=== PATIENT | female | born 2000 | race American Indian/Alaskan Native ===

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

== ENCOUNTER 2020-08-14 16:49 | Emergency (ER) | payer SELFPAY ==
[2020-08-14 17:10] VITALS: BP 131/64
--- NOTE | 2020-08-14 17:13 | Emergency Department Report ---
ED Dysuria HPI - HPI Stated Complaint: CRAMPING/LATE PERIOD Time Seen by Provider: 08/14/20 17:10 Duration: 2 weeks Symptoms: Dysuria: Yes, Frequency: No, Suprapubic Pain: Yes, Flank Pain: No, Fever: No, Hematuria: No, Abdominal Pain: No, Previous UTI's: No Other History: This is a 20-year-old G0, P0 who presents to the ED complaining of mild suprapubic cramping x2 weeks. Patient states that she had a last menstrual period June 23, 2020. Patient states she took a test at home that was negative. Patient states she is unsure why she is having cramps on the lower pelvic region. She denies fever/chills/nausea vomiting/chest pain/shortness of breath or any other problems. ED Review of Systems ROS: Stated complaint: CRAMPING/LATE PERIOD Other details as noted in HPI Comment: All other systems reviewed and negative ED Past Medical Hx - Past Medical History Previous Medical History?: No Hx Psychiatric Treatment: Yes (IP at [place], [place]) - Surgical History Past Surgical History?: No - Social History Smoking Status: Never Smoker Substance Use Type: None - Medications Home Medications: Home Medications Medication Instructions Recorded Confirmed Last Taken Type Vit-Fe Fumar-FA [ 1 tab PO QDAY #60 tablet 08/14/20 Unknown Rx Vitamin] Dysuria Exam - Exam General: Vital signs noted. No distress. Alert and acting appropriately. Exam: Yes Moist Mucous Membranes, No CVA Tenderness, No Abdominal Tenderness, No Rigidity or Guarding Exam: Nontender abdomen in all quadrants ED Medical Decision Making - Radiology Data Radiology results: report reviewed, image reviewed ULTRASOUND OBSTETRIC INDICATION: 7 weeks with pelvic pain. TECHNIQUE: Transvaginal. COMPARISON: None available. FINDINGS: GESTATIONAL SAC: Well-defined oval shape and intrauterine in location. YOLK SAC: No significant abnormality. EMBRYO/FETUS: No significant abnormality. - [place]-Rump Length = 0.2 cm = 5 weeks, 5 day(s). - Heart Rate = 98 beats per minute. ADNEXA: No significant abnormality. FREE FLUID: None. ADDITIONAL FINDINGS: None. IMPRESSION: 1. Single, living intrauterine with estimated sonographic age of 5 weeks, 5 day(s). No acute abnormality. Signer Name: Johnathon Lamar MD Signed: 08/14/2020 8:19 PM Workstation Name: [id number] Transcribed By: [place] Dictated By: Johnathon Lamar MD Electronically Authenticated By: Johnathon Lamar MD Signed Date/Time: 08/14/202018 - Medical Decision Making This 20-year-old female presents with test positive. Ultrasound confirmed single intrauterine at 5 weeks 5 days with heart rate 98 bpm Discussed all findings with the patient. I discussed with patient need to follow-up with [facility] to receive care. vitamins given to patient along with referrals to last cycle [facility]. All answer questions answered. Patient is in no acute or respiratory distress. Critical care attestation.: If time is entered above; I have spent that time in minutes in the direct care of this critically ill patient, excluding procedure time. ED Disposition Clinical Impression: test performed, confirmed, Normal IUP (intrauterine pregnan cy) on ultrasound Disposition: DC- TO HOME OR SELFCARE Is pt being admited?: No Does the pt Need Aspirin: No Condition: Stable Instructions: Abdominal Pain (ED), Care, First Trimester of Additional Instructions: Make sure to follow up with the [facility] OPER[facility] as discussed. Take all your medications as you've been prescribed. If you have any worsening symptoms or develop new symptoms please return to ED immediately. Prescriptions: Vit-Fe Fumar-FA [ Vitamin] 1 tab PO QDAY #60 tablet Referrals: PRIMARY CAREMD [Primary Care Provider] - 3-5 Days [facility] [Provider Group] - 3-5 Days [facility] [Provider Group] - 3-5 Days Forms: Work/School Release Form(ED) Time of Disposition: 20:43
[2020-08-14 18:26] LABS: Bilirubin,Urine NEG (Negative); Blood,Urine NEG (Negative); Color,Urine Yellow (Yellow); Mucus,Urine 3+ /HPF; Urobilinogen,Urine < 2.0 mg/dL (<2.0)
[2020-08-14 18:27] LABS: HCG Qualitative,Urine Positive (Negative)
--- NOTE | 2020-08-14 20:23 | Ultrasound Report ---
ULTRASOUND OBSTETRIC INDICATION: 7 weeks with pelvic pain. TECHNIQUE: Transvaginal. COMPARISON: None available. FINDINGS: GESTATIONAL SAC: Well-defined oval shape and intrauterine in location. YOLK SAC: No significant abnormality. EMBRYO/FETUS: No significant abnormality. - [place]-Rump Length = 0.2 cm = 5 weeks, 5 day(s). - Heart Rate = 98 beats per minute. ADNEXA: No significant abnormality. FREE FLUID: None. ADDITIONAL FINDINGS: None. IMPRESSION: 1. Single, living intrauterine with estimated sonographic age of 5 weeks, 5 day(s). No acut e abnormality. Signer Name: Johnathon Lamar MD Signed: 08/14/2020 8:19 PM Workstation Name: [id number]
--- NOTE | 2020-08-14 20:23 | Ultrasound Report ---
ULTRASOUND OBSTETRIC INDICATION: 7 weeks with pelvic pain. TECHNIQUE: Transvaginal. COMPARISON: None available. FINDINGS: GESTATIONAL SAC: Well-defined oval shape and intrauterine in location. YOLK SAC: No significant abnormality. EMBRYO/FETUS: No significant abnormality. - [place]-Rump Length = 0.2 cm = 5 weeks, 5 day(s). - Heart Rate = 98 beats per minute. ADNEXA: No significant abnormality. FREE FLUID: None. ADDITIONAL FINDINGS: None. IMPRESSION: 1. Single, living intrauterine with estimated sonographic age of 5 weeks, 5 day(s). No acut e abnormality. Signer Name: Johnathon Lamar MD Signed: 08/14/2020 8:19 PM Workstation Name: [id number]
== END 2020-08-14 21:33 | disposition home or self-care (01) ==
LOC: ED 16:49
DX: O00.01 Abdominal pregnancy with intrauterine pregnancy (principal); Z32.01 Encounter for pregnancy test, result positive; Z79.899 Other long term (current) drug therapy
CPT/HCPCS: 76801; 76817; 81001; 81025

== ENCOUNTER 2020-08-20 16:51 | Emergency (ER) | payer SELFPAY ==
[2020-08-20] MEDS ORDERED: HYDROcodone/ACETAMINOPHEN 5-325 MG TAB PO ONE (16:58)
[2020-08-20 17:03] VITALS: BP 135/80
--- NOTE | 2020-08-20 17:03 | Emergency Department Report ---
<DEDRICK BLANKENSHIP - Last Filed: 08/20/20 22:01> ED Female HPI - General Stated complaint: ABD PAINS Time Seen by Provider: 08/20/20 16:51 Source: patient Mode of arrival: Wheelchair Limitations: No Limitations - History of Present Illness Initial comments: pt is a 20 yo female who presents to the ED with c/o lower abdominal cramping that began today. she states that the ibuprofen she was prescribed is not helping. she states she had a medical pill yesterday at [facility]. she states she was given pills in office and sent home with prescriptions and she states she took all the pills. she states she was also given azithromycin. she states that beginning today she started having cramping. she states she has bleeding as well. she states it is not significantly heavy. she states it is "not that bad." she denies any fever, n/v/d, urinary symptoms, abnormal vaginal discharge, back pain, fatigue, dizziness, weakness. she states this was her first and her first . no allergies to meds. she was evaluated in the ED 6 days ago and was found to have an IUP at 5 weeks. she states she does have a follow up appointment with [facility]. - Related Data Previous Rx's Medication Instructions Recorded Last Taken Type Vit-Fe Fumar-FA [ 1 tab PO QDAY #60 tablet 08/14/20 Unknown Rx Vitamin] Allergies Allergy/AdvReac Type Severity Reaction Status Date / Time No Known Allergies Allergy Verified 08/14/20 17:03 ED Review of Systems Comment: All other systems reviewed and negative ED Past Medical Hx - Past Medical History Hx Psychiatric Treatment: Yes (IP at [place], [place]) - Social History Smoking Status: Never Smoker Substance Use Type: None - Medications Home Medications: Home Medications Medication Instructions Recorded Confirmed Last Taken Type Vit-Fe Fumar-FA [ 1 tab PO QDAY #60 tablet 08/14/20 Unknown Rx Vitamin] ED Physical Exam - General General appearance: alert, in no apparent distress - Head Head exam: Present: atraumatic, normocephalic - Eye Eye exam: Present: normal appearance - ENT ENT exam: Present: mucous membranes moist - Respiratory Respiratory exam: Present: normal lung sounds bilaterally. Absent: respiratory distress, wheezes, rales, rhonchi, stridor, chest wall tenderness, accessory muscle use, decreased breath sounds, prolonged expiratory - Cardiovascular Cardiovascular Exam: Present: regular rate, normal rhythm, normal heart sounds. Absent: systolic murmur, diastolic murmur, rubs, gallop - GI/Abdominal GI/Abdominal exam: Present: soft, normal bowel sounds. Absent: distended, tenderness, guarding, rebound, rigid - Neurological Exam Neurological exam: Present: alert, oriented X3 - Psychiatric Psychiatric exam: Present: normal affect, normal mood - Skin Skin exam: Present: warm, dry, intact ED Medical Decision Making - Medical Decision Making pt is a 20 yo female who presents to the ED with c/o lower abdominal cramping that began today. she states that the ibuprofen she was prescribed is not helping. she states she had a medical pill yesterday at [facility]. she states she was given pills in office and sent home with prescriptions and she states she took all the pills. she states she was also given azithromycin. she states that beginning today she started having cramping. she states she has bleeding as well. she states it is not significantly heavy. she states it is "not that bad." she denies any fever, n/v/d, urinary symptoms, abnormal vaginal discharge, back pain, fatigue, dizziness, weakness. she states this was her first and her first . no allergies to meds. she was evaluated in the ED 6 days ago and was found to have an IUP at 5 weeks. she states she does have a follow up appointment with [facility]. Reassuring. Patient has no abdominal tenderness on exam, no guarding, no rebound, no rigidity, normal bowel sounds, no peritoneal signs. Patient is experiencing symptoms that are appropriate for a medical pill . She has no significant pain, she is ambulatory without difficulty, she denies any significantly heavy bleeding. Advised patient that we would give her pain medication as she did not drive and she states that she has someone picking her up and we would reassess her and repeat her vitals and have her follow-up with [facility]. Patient eloped from the emergency department prior to receiving pain medication and prior to reassessment. ED Disposition Clinical Impression: Abdominal cramping Disposition: ELOPED Is pt being admited?: No Does the pt Need Aspirin: No Condition: Undetermined Instructions: Abdominal Pain (ED) Referrals: [facility] [Provider Group] - 2-3 Days PRIMARY CARE, [Primary Care Provider] - 2-3 Days <LISA MONTERO - Last Filed: 08/20/20 23:33> ED Review of Systems ROS: Stated complaint: ABD PAINS Other details as noted in HPI ED Course Vital Signs 08/20/20 08/20/20 16:44 17:35 Temperature 99.1 F Pulse Rate 72 Respiratory 20 18 Rate Blood Pressure 135/80 O2 Sat by Pulse 100 Oximetry Critical care attestation.: If time is entered above; I have spent that time in minutes in the direct care of this critically ill patient, excluding procedure time.
== END 2020-08-20 17:36 | disposition left against medical advice (07) ==
LOC: ED 16:51
DX: R10.30 Lower abdominal pain, unspecified (principal); Z79.899 Other long term (current) drug therapy
CPT/HCPCS: 99282

== ENCOUNTER 2020-10-27 23:47 | Emergency (ER) | payer SELFPAY ==
[2020-10-28 00:14] LABS: Basophils % (Auto) 0.6 % (0.0-1.8); Eosinophils # (Auto) 0.1 K/mm3 (0.0-0.4); Eosinophils % (Auto) 2.3 % (0.0-4.3); Hematocrit 35.7 % (30.3-42.9); Hemoglobin 12.1 gm/dl (10.1-14.3); Lymphocytes # (Auto) 2.5 K/mm3 (1.2-5.4); Lymphocytes % (Auto) 38.7 % (13.4-35.0); Mean Corpuscular HGB Conc 34 % (30-34); Mean Corpuscular Volume 92 fl (79-97); Monocytes # (Auto) 0.7 K/mm3 (0.0-0.8); Monocytes % (Auto) 10.9 % (0.0-7.3); Platelet Count 341 K/mm3 (140-440); Red Blood Count 3.86 M/mm3 (3.65-5.03)
[2020-10-28 00:37] LABS: BUN/Creatinine Ratio 9; Blood Urea Nitrogen 8 mg/dL (7-17); Calcium 8.9 mg/dL (8.4-10.2); Hemolysis Index 0
== END 2020-10-28 02:35 | disposition left against medical advice (07) ==
LOC: ED 23:47
DX: R44.0 Auditory hallucinations (principal); Z53.21 Procedure and treatment not carried out due to patient leaving prior to being seen by health care provider
CPT/HCPCS: 36415; 80048; 80320; 84703; 85025; G0480

== ENCOUNTER 2020-11-26 05:08 | Emergency (ER) | payer OTHER, SELFPAY ==
[2020-11-26 06:22] LABS: Basophils % (Auto) 0.6 % (0.0-1.8); Eosinophils # (Auto) 0.1 K/mm3 (0.0-0.4); Eosinophils % (Auto) 1.6 % (0.0-4.3); Hematocrit 32.9 % (30.3-42.9); Hemoglobin 11.5 gm/dl (10.1-14.3); Lymphocytes % (Auto) 25.9 % (13.4-35.0); Mean Corpuscular HGB Conc 35 % (30-34); Mean Corpuscular Volume 93 fl (79-97); Monocytes # (Auto) 0.8 K/mm3 (0.0-0.8); Monocytes % (Auto) 10.8 % (0.0-7.3); Platelet Count 347 K/mm3 (140-440); Red Blood Count 3.55 M/mm3 (3.65-5.03)
[2020-11-26 06:41] LABS: BUN/Creatinine Ratio 16; Blood Urea Nitrogen 11 mg/dL (7-17); Calcium 8.5 mg/dL (8.4-10.2); Hemolysis Index 5
--- NOTE | 2020-11-26 07:54 | Emergency Department Report ---
HPI - General Chief Complaint: Psych Time Seen by Provider: 11/26/20 07:29 - HPI HPI: Room 16 The patient is a 20-year-old female presenting with a chief complaint of chest pain and suicidal ideation. The patient states last night after smoking marijua na she developed substernal chest pain and lightheadedness. Patient states when she walked outside she began to feel better but still felt as though she was "shaking" on the inside. Patient came to the hospital at that time mentioned homicidal and suicidal ideation. During my interview the patient states "I do not know why I said that." Patient currently denies chest pain. ED Past Medical Hx - Past Medical History Previous Medical History?: Yes Hx Psychiatric Treatment: Yes (bipolar, schizophrenia) - Surgical History Past Surgical History?: No - Family History Family history: no significant - Social History Smoking Status: Never Smoker Substance Use Type: Alcohol (Occasional), Marijuana - Medications Home Medications: Home Medications Medication Instructions Recorded Confirmed Last Taken Type Vit-Fe Fumar-FA [ 1 tab PO QDAY #60 tablet 08/14/20 Unknown Rx Vitamin] ED Review of Systems ROS: Stated complaint: CHEST PAIN Other details as noted in HPI Constitutional: no symptoms reported Eyes: denies: eye pain ENT: denies: throat pain Respiratory: no symptoms reported Cardiovascular: chest pain Endocrine: no symptoms reported Gastrointestinal: denies: abdominal pain Genitourinary: denies: dysuria Musculoskeletal: denies: back pain Neurological: denies: headache Psychiatric: homicidal thoughts, suicidal thoughts Physical Exam - Physical Exam Vital Signs: Vital Signs 11/26/20 05:12 Temperature 98.3 F Pulse Rate 114 H Respiratory 18 Rate Blood Pressure 118/66 O2 Sat by Pulse 100 Oximetry Physical Exam: GENERAL: The patient is well-developed well-nourished female sitting in chair not appearing to be in acute distress. [] HEENT: Normocephalic. Atraumatic. Extraocular motions are intact. Patient has moist mucous membranes. NECK: Supple. Trachea midline CHEST/LUNGS: Clear to auscultation. There is no respiratory distress noted. HEART/CARDIOVASCULAR: Regular. There is no tachycardia. There is no gallop rub or murmur. ABDOMEN: Abdomen is soft, nontender. Patient has normal bowel sounds. There is no abdominal distention. SKIN: There is no rash. There is no edema. There is no diaphoresis. NEURO: The patient is awake, alert, and oriented. The patient is cooperative. The patient has no focal neurologic deficits. The patient has normal speech MUSCULOSKELETAL: There is no evidence of acute injury. ED Course Vital Signs 11/26/20 05:12 Temperature 98.3 F Pulse Rate 114 H Respiratory 18 Rate Blood Pressure 118/66 O2 Sat by Pulse 100 Oximetry ED Medical Decision Making - Lab Data Result diagrams: 11/26/20 06:06 11/26/20 06:06 Laboratory Tests 11/26/20 11/26/20 11/26/20 06:06 06:06 06:06 WBC RBC Hgb Hct MCV MCH MCHC RDW Plt Count Lymph % (Auto) [place] % (Auto) Eos % (Auto) Baso % (Auto) Lymph # (Auto) [place] # (Auto) Eos # (Auto) Baso # (Auto) Seg Neutrophils % Seg Neutrophils # D-Dimer Sodium 139 Potassium 3.9 Chloride 102.3 Carbon Dioxide 22 Anion Gap 19 BUN 11 Creatinine 0.7 Estimated GFR > 60 BUN/Creatinine Ratio 16 Glucose 178 H Calcium 8.5 Total Creatine Kinase CK-MB (CK-2) CK-MB (CK-2) Rel Index Troponin T HCG, Qual Urine Color Urine Turbidity Urine pH Ur Specific [place] Urine Protein Urine Glucose (UA) Urine Ketones Urine Blood Urine Nitrite Urine Bilirubin Urine Urobilinogen Ur Leukocyte Esterase Urine WBC (Auto) Urine RBC (Auto) U Epithel Cells (Auto) Urine Mucus Salicylates < 0.3 L Urine Opiates Screen Urine Methadone Screen Acetaminophen 5.0 L Ur Barbiturates Screen Ur Phencyclidine Scrn Ur Amphetamines Screen U Benzodiazepines Scrn Urine Cocaine Screen U Marijuana (THC) Screen Drugs of Abuse Note Plasma/Serum Alcohol 11/26/20 11/26/20 11/26/20 06:06 06:06 07:54 WBC 7.8 RBC 3.55 L Hgb 11.5 Hct 32.9 MCV 93 MCH 32 MCHC 35 H RDW 13.0 L Plt Count 347 Lymph % (Auto) 25.9 [place] % (Auto) 10.8 H Eos % (Auto) 1.6 Baso % (Auto) 0.6 Lymph # (Auto) 2.0 [place] # (Auto) 0.8 Eos # (Auto) 0.1 Baso # (Auto) 0.0 Seg Neutrophils % 61.1 Seg Neutrophils # 4.7 D-Dimer 185.58 Sodium Potassium Chloride Carbon Dioxide Anion Gap BUN Creatinine Estimated GFR BUN/Creatinine Ratio Glucose Calcium Total Creatine Kinase CK-MB (CK-2) CK-MB (CK-2) Rel Index Troponin T HCG, Qual Urine Color Urine Turbidity Urine pH Ur Specific Cascade Urine Protein Urine Glucose (UA) Urine Ketones Urine Blood Urine Nitrite Urine Bilirubin Urine Urobilinogen Ur Leukocyte Esterase Urine WBC (Auto) Urine RBC (Auto) U Epithel Cells (Auto) Urine Mucus Salicylates Urine Opiates Screen Urine Methadone Screen Acetaminophen Ur Barbiturates Screen Ur Phencyclidine Scrn Ur Amphetamines Screen U Benzodiazepines Scrn Urine Cocaine Screen U Marijuana (THC) Screen Drugs of Abuse Note Plasma/Serum Alcohol < 0.01 11/26/20 11/26/20 11/26/20 07:54 07:54 16:58 WBC RBC Hgb Hct MCV MCH MCHC RDW Plt Count Lymph % (Auto) [place] % (Auto) Eos % (Auto) Baso % (Auto) Lymph # (Auto) [place] # (Auto) Eos # (Auto) Baso # (Auto) Seg Neutrophils % Seg Neutrophils # D-Dimer Sodium Potassium Chloride Carbon Dioxide Anion Gap BUN Creatinine Estimated GFR BUN/Creatinine Ratio Glucose Calcium Total Creatine Kinase 126 CK-MB (CK-2) < 1.0 CK-MB (CK-2) Rel Index 0.7 Troponin T < 0.010 HCG, Qual Negative Urine Color Yellow Urine Turbidity Clear Urine pH 6.0 Ur Specific [place] 1.015 Urine Protein <15 mg/dl Urine Glucose (UA) Neg Urine Ketones Neg Urine Blood Lg Urine Nitrite Neg Urine Bilirubin Neg Urine Urobilinogen < 2.0 Ur Leukocyte Esterase Neg Urine WBC (Auto) 4.0 Urine RBC (Auto) > 182.0 U Epithel Cells (Auto) 1.0 Urine Mucus Few Salicylates Urine Opiates Screen Urine Methadone Screen Acetaminophen Ur Barbiturates Screen Ur Phencyclidine Scrn Ur Amphetamines Screen U Benzodiazepines Scrn Urine Cocaine Screen U Marijuana (THC) Screen Drugs of Abuse Note Plasma/Serum Alcohol 11/26/20 16:58 WBC RBC Hgb Hct MCV MCH MCHC RDW Plt Count Lymph % (Auto) [place] % (Auto) Eos % (Auto) Baso % (Auto) Lymph # (Auto) [place] # (Auto) Eos # (Auto) Baso # (Auto) Seg Neutrophils % Seg Neutrophils # D-Dimer Sodium Potassium Chloride Carbon Dioxide Anion Gap BUN Creatinine Estimated GFR BUN/Creatinine Ratio Glucose Calcium Total Creatine Kinase CK-MB (CK-2) CK-MB (CK-2) Rel Index Troponin T HCG, Qual Urine Color Urine Turbidity Urine pH Ur Specific [place] Urine Protein Urine Glucose (UA) Urine Ketones Urine Blood Urine Nitrite Urine Bilirubin Urine Urobilinogen Ur Leukocyte Esterase Urine WBC (Auto) Urine RBC (Auto) U Epithel Cells (Auto) Urine Mucus Salicylates Urine Opiates Screen Negative Urine Methadone Screen Negative Acetaminophen Ur Barbiturates Screen Negative Ur Phencyclidine Scrn Negative Ur Amphetamines Screen Negative U Benzodiazepines Scrn Negative Urine Cocaine Screen Negative U Marijuana (THC) Screen Positive Drugs of Abuse Note Disclamer Plasma/Serum Alcohol - EKG Data -: EKG Interpreted by Me EKG shows normal: sinus rhythm Rate: normal - EKG Data When compared to previous EKG there are: previous EKG unavailable Interpretation: nonspecific ST-T wave jimenez (T wave inversion in lead III) - Differential Diagnosis Schizophrenia, suicidal ideation, PE, costochondritis, ACS, substance abuse Critical care attestation.: If time is entered above; I have spent that time in minutes in the direct care of this critically ill patient, excluding procedure time. ED Disposition Clinical Impression: Suicidal ideation Disposition: DC/TX-65 PSY HOSP/PSY UNIT Is pt being admited?: No Does the pt Need Aspirin: No Condition: Stable Referrals: PRIMARY CARE, [Primary Care Provider] - 3-5 Days
[2020-11-26 09:09] LABS: Creatine Kinase MB < 1.0 ng/mL (0.0-4.0)
--- NOTE | 2020-11-26 10:41 | Consultation ---
History of Present Illness - Reason for Consult Consult date: 11/26/20 Reason for consult: hx of schizophrenia - History of Present Psychiatric Illness Per ED Note: The patient is a 20-year-old female presenting with a chief complaint of chest pain and suicidal ideation. The patient states last night after smoking marijuana she developed substernal chest pain and lightheadedness. Patient states when she walked outside she began to feel better but still felt as though she was "shaking" on the inside. Patient came to the hospital at that time mentioned homicidal and suicidal ideation. During my interview the patient states "I do not know why I said that." Patient currently denies chest pain. Maddie Garduno is a 20y/o female I seen today. The patient is speaking in a very soft tone, she is difficult to follow at times. She is responding to internal stimuli. Her responses are delayed. She then says "I'm trying to listen for them. They never shut up." She verbalizes being depressed and feeling stressed out. The patient says "the voices want me to commit suicide but I'm trying not to." She then says "I'm just tired of them. I'm tired of hearing them. They wont shut up." She is slightly tearful. The patient says she was admi tted to [facility] a few weeks ago. She says but she couldn't take the depakote because it made her too sleepy. PAST PSYCHIATRIC HISTORY Diagnoses: schizophrenia, bipolar Suicide attempts or Self-harm behavior: Denies Prior psychiatric hospitalizations: Yes Substance Abuse history: Denies Previous psychiatric medications tried: Depakote Outpatient treatment: Denies PAST MEDICAL HISTORY: None reported Family Psychiatric History: None reported or documented SOCIAL HISTORY Marital Status: Single Living Arrangements: with boyfriend Employment Status: disabled Access to guns/weapons: employed Education:high school diploma History of Abuse: Denies Legal History: Denies REVIEW OF SYSTEMS Constitutional: Negative for weight loss ENT: Negative for stridor Respiratory: Negative for cough or hemoptysis All other systems reviewed and are negative MENTAL STATUS EXAMINATION General Appearance and Behavior: Age appropriate, good hygiene, not wearing appropriate clothes, good eye contact, cooperative polite with questioning. Cooperation: Participating/engaged Psychomotor Behavior: Psychomotor agitation Mood: Depressed Affect and affective range: tearful, restricted Thought Process: Circumstantial, Illogical, responding to internal stimuli Thought Content: Illogical Speech: low tone, soft Intellectual Functioning: Average Suicidal Ideation: Yes Homicidal Ideation: Denies HI Hallucinations: Auditory Delusions: None elicited Impulse Control: Impaired Insight and Judgment: Limited insight and judgment Memory: Normal, Attention: Divided attention impaired Orientation: Alert, oriented, Assessment and Plan (1) Schizophrenia Current Visit: Yes Status: Acute Treatment Plan 1013 Start Zoloft 25mg po daily Start Olanzapine 2.5mg po daily Sitter: Per primary Medical: Per primary Disposition: Recommend acute psychiatric inpatient treatment Will follow. Thank you for this consult Case staffed with Dr. Reddy. Medications and Allergies Allergies Allergy/AdvReac Type Severity Reaction Status Date / Time No Known Allergies Allergy Verified 08/14/20 17:03 Home Medications Medication Instructions Recorded Confirmed Last Taken Type Vit-Fe Fumar-FA [ 1 tab PO QDAY #60 tablet 08/14/20 Unknown Rx Vitamin] Mental Status Exam - Vital signs Last Vital Signs Temp 98.6 F 11/26/20 09:59 Pulse 94 H 11/26/20 09:59 Resp 18 11/26/20 09:59 BP 102/51 11/26/20 09:59 Pulse Ox 100 11/26/20 09:59 Results Result Diagrams: 11/26/20 06:06 11/26/20 06:06 Abnormal lab results 11/26/20 11/26/20 11/26/20 Range/Units 06:06 06:06 06:06 RBC (3.65-5.03) M/mm3 MCHC (30-34) % RDW (13.2-15.2) % [place] % (Auto) (0.0-7.3) % Glucose 178 H (65-100) mg/dL Salicylates < 0.3 L (2.8-20.0) mg/dL Acetaminophen 5.0 L (10.0-30.0) ug/mL 11/26/20 Range/Units 06:06 RBC 3.55 L (3.65-5.03) M/mm3 MCHC 35 H (30-34) % RDW 13.0 L (13.2-15.2) % [place] % (Auto) 10.8 H (0.0-7.3) % Glucose (65-100) mg/dL Salicylates (2.8-20.0) mg/dL Acetaminophen (10.0-30.0) ug/mL All other labs normal.
[2020-11-26] MEDS: SERTRALINE 25 MG TAB PO SCH (12:03)
[2020-11-26 17:15] LABS: Bilirubin,Urine NEG (Negative); Blood,Urine LG (Negative); Color,Urine Yellow (Yellow); Mucus,Urine FEW /HPF; Protein,Urine <15 mg/dL mg/dL (Negative); Urobilinogen,Urine < 2.0 mg/dL (<2.0)
[2020-11-26 17:17] LABS: RBC,Urine > 182.0 /HPF (0.0-6.0)
[2020-11-26] MEDS ORDERED: WATER FOR INJ Sterile (PF) 10 ML ONE (17:17)
[2020-11-26 17:21] LABS: Amphetamine Screen,Urine Negative; Benzodiazepines Screen,Urine Negative; Cocaine Screen,Urine Negative; Methadone Screen,Urine Negative; Opiate Screen,Urine Negative
[2020-11-26] MEDS ORDERED: diphenhydrAMINE 50 MG/ML VIAL IV ONE (17:32)
[2020-11-26] MEDS ORDERED: ZIPRASIDONE MESYLATE 20 MG VIAL IM ONE (17:32)
[2020-11-26 17:33] LABS: Cannabinoid Screen,Urine Positive
[2020-11-26] MEDS ORDERED: LORazepam 2 MG/ML VIAL IM ONE (17:55)
--- NOTE | 2020-11-26 17:57 | Emergency Department Report ---
Blank Doc - Documentation Documentation: This patient all of a sudden began exhibiting severe agitation and psychosis. She was screaming at the top of her lungs. She was not redirectable to any of the rooms. Patient was placed in room 13 and was given 20 mg of Geodon and 50 mg of Benadryl. After 30 minutes this did not help her at all. She was then given 2 mg of Ativan. We will continue to monitor.
--- NOTE | 2020-11-27 08:34 | Progress Note ---
Subjective - Reason for Consult Consult date: 11/27/20 Reason for consult: MHE Requesting physician: ASAD GOTTLIEB - Chief Complaint Chief complaint: Psych Progress HPI In my interview with the patient this morning, the patient is in denial of her symptoms but appears to be responding to internal stimulus as she laughs without a prompt. Patient states she only told them she was suicidal in paper and not in person, endorses taking psychiatric medications at home, patient appears to be in a manic like episode, consistent with her history of taking deparkote at home MENTAL STATUS EXAMINATION General Appearance and Behavior: Age appropriate, good hygiene, not wearing appropriate clothes, good eye contact, cooperative polite with questioning. Cooperation: Participating/engaged Psychomotor Behavior: Psychomotor agitation Mood: Good Affect and affective range: euthymic, euphoric Thought Process:Circumstantial, Illogical, Thought Content: Flight of ideas, Illogical, Grandiose, Speech: pressured, loud volume at times Intellectual Functioning: Average Suicidal Ideation: Denies SI Homicidal Ideation: Denies HIl Impulse Control: Impaired Insight and Judgment: Limited insight and judgment Memory: Normal, Attention: Divided attention impaired Orientation: Alert, oriented, Diagnoses: Treatment Plan Will restart Deparkote. MEDICATIONS: Risks, benefits and alternatives of medications discussed with the patient, questions answered and consent obtained from patient. PSYCHOTHERAPY: Supportive psychotherapy provided MEDICAL: Per primary team DELIRIUM PRECAUTIONS: Please re-orient patient frequently, keep lights on during the day, and minimize benzodiazepines and opiates as these medications could worsen patient's confusion. 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 Case discussed with Dr. Reddy who agrees with current disposition LEGAL STATUS: 1013 FOLLOW-UP: Will follow Thank you for the consult. Please contact with any questions and/or concerns. Mental Status Exam - Vital signs Last Vital Signs Temp 98.4 F 11/27/20 02:41 Pulse 78 11/27/20 02:41 Resp 16 11/27/20 02:41 BP 103/53 11/27/20 02:41 Pulse Ox 100 11/27/20 02:41
[2020-11-27] MEDS ORDERED: LORazepam 1 MG TAB PO PRN (09:41)
[2020-11-27] MEDS ORDERED: HALOPERIDOL LACTATE 5 MG/1 ML INJ IM PRN (09:42)
[2020-11-27] MEDS ORDERED: diphenhydrAMINE 50 MG/ML VIAL IM PRN (09:42)
[2020-11-27] MEDS: SERTRALINE 25 MG TAB PO SCH (09:50)
[2020-11-27] MEDS ORDERED: ACETAMINOPHEN 325 MG TAB PO PRN (10:32)
--- NOTE | 2020-11-27 11:05 | Event Note ---
Date: 11/27/20 The patient was evaluated in the emergency department for symptoms described in the history of present illness. He/she was evaluated in the context of the global COVID-19 pandemic, which necessitated consideration that the patient might be at risk for infection with the virus that causes COVID-19. Institutional protocols and algorithms that pertain to the evaluation of patients at risk for COVID-19 are in a state of rapid change based on information released by regulatory bodies including the CDC and federal and state organizations. These policies and algorithms were followed during the patient's care in the emergency department. Please note that these policies, procedures and recommendations changed on a rapid basis. Patient resting comfortably on chair, in no acute distress. Laboratory studies, vital signs, psychiatric recommendations, and prior ER documentation reviewed and appreciated. Nursing team indicates that patient has not articulated any complaints this morning. Medically suitable at this time for psychiatric placement, patient does not appear to have an emergent medical condition present at the moment. Vital Signs 11/26/20 11/26/20 11/26/20 05:12 09:59 19:54 Temperature 98.3 F 98.6 F 97.9 F Pulse Rate 114 H 94 H 87 Respiratory 18 18 19 Rate Blood Pressure 118/66 Blood Pressure 102/51 107/65 [Left] O2 Sat by Pulse 100 100 99 Oximetry 11/27/20 11/27/20 02:41 08:31 Temperature 98.4 F 98.6 F Pulse Rate 78 61 Respiratory 16 20 Rate Blood Pressure Blood Pressure 103/53 112/67 [Left] O2 Sat by Pulse 100 100 Oximetry Lab Results 11/26/20 11/26/20 11/26/20 Range/Units 06:06 06:06 06:06 WBC (4.5-11.0) K/mm3 RBC (3.65-5.03) M/mm3 Hgb (10.1-14.3) gm/dl Hct (30.3-42.9) % MCV (79-97) fl MCH (28-32) pg MCHC (30-34) % RDW (13.2-15.2) % Plt Count (140-440) K/mm3 Lymph % (Auto) (13.4-35.0) % [place] % (Auto) (0.0-7.3) % Eos % (Auto) (0.0-4.3) % Baso % (Auto) (0.0-1.8) % Lymph # (Auto) (1.2-5.4) K/mm3 [place] # (Auto) (0.0-0.8) K/mm3 Eos # (Auto) (0.0-0.4) K/mm3 Baso # (Auto) (0.0-0.1) K/mm3 Seg Neutrophils % (40.0-70.0) % Seg Neutrophils # (1.8-7.7) K/mm3 D-Dimer (0-234) ng/mlDDU Sodium 139 (137-145) mmol/L Potassium 3.9 (3.6-5.0) mmol/L Chloride 102.3 (98-107) mmol/L Carbon Dioxide 22 (22-30) mmol/L Anion Gap 19 mmol/L BUN 11 (7-17) mg/dL Creatinine 0.7 (0.6-1.2) mg/dL Estimated GFR > 60 ml/min BUN/Creatinine Ratio 16 % Glucose 178 H (65-100) mg/dL Calcium 8.5 (8.4-10.2) mg/dL Total Creatine Kinase (30-135) units/L CK-MB (CK-2) (0.0-4.0) ng/mL CK-MB (CK-2) Rel Index (0-4) Troponin T (0.00-0.029) ng/mL HCG, Qual (Negative) Urine Color (Yellow) Urine Turbidity (Clear) Urine pH (5.0-7.0) Ur Specific [place] (1.003-1.030) Urine Protein (Negative) mg/dL Urine Glucose (UA) (Negative) mg/dL Urine Ketones (Negative) mg/dL Urine Blood (Negative) Urine Nitrite (Negative) Urine Bilirubin (Negative) Urine Urobilinogen (<2.0) mg/dL Ur Leukocyte Esterase (Negative) Urine WBC (Auto) (0.0-6.0) /HPF Urine RBC (Auto) (0.0-6.0) /HPF U Epithel Cells (Auto) (0-13.0) /HPF Urine Mucus /HPF Salicylates < 0.3 L (2.8-20.0) mg/dL Urine Opiates Screen Urine Methadone Screen Acetaminophen 5.0 L (10.0-30.0) ug/mL Ur Barbiturates Screen Ur Phencyclidine Scrn Ur Amphetamines Screen U Benzodiazepines Scrn Urine Cocaine Screen U Marijuana (THC) Screen Drugs of Abuse Note Plasma/Serum Alcohol (0-0.07) % 11/26/20 11/26/20 11/26/20 Range/Units 06:06 06:06 07:54 WBC 7.8 (4.5-11.0) K/mm3 RBC 3.55 L (3.65-5.03) M/mm3 Hgb 11.5 (10.1-14.3) gm/dl Hct 32.9 (30.3-42.9) % MCV 93 (79-97) fl MCH 32 (28-32) pg MCHC 35 H (30-34) % RDW 13.0 L (13.2-15.2) % Plt Count 347 (140-440) K/mm3 Lymph % (Auto) 25.9 (13.4-35.0) % [place] % (Auto) 10.8 H (0.0-7.3) % Eos % (Auto) 1.6 (0.0-4.3) % Baso % (Auto) 0.6 (0.0-1.8) % Lymph # (Auto) 2.0 (1.2-5.4) K/mm3 [place] # (Auto) 0.8 (0.0-0.8) K/mm3 Eos # (Auto) 0.1 (0.0-0.4) K/mm3 Baso # (Auto) 0.0 (0.0-0.1) K/mm3 Seg Neutrophils % 61.1 (40.0-70.0) % Seg Neutrophils # 4.7 (1.8-7.7) K/mm3 D-Dimer 185.58 (0-234) ng/mlDDU Sodium (137-145) mmol/L Potassium (3.6-5.0) mmol/L Chloride (98-107) mmol/L Carbon Dioxide (22-30) mmol/L Anion Gap mmol/L BUN (7-17) mg/dL Creatinine (0.6-1.2) mg/dL Estimated GFR ml/min BUN/Creatinine Ratio % Glucose (65-100) mg/dL Calcium (8.4-10.2) mg/dL Total Creatine Kinase (30-135) units/L CK-MB (CK-2) (0.0-4.0) ng/mL CK-MB (CK-2) Rel Index (0-4) Troponin T (0.00-0.029) ng/mL HCG, Qual (Negative) Urine Color (Yellow) Urine Turbidity (Clear) Urine pH (5.0-7.0) Ur Specific [place] (1.003-1.030) Urine Protein (Negative) mg/dL Urine Glucose (UA) (Negative) mg/dL Urine Ketones (Negative) mg/dL Urine Blood (Negative) Urine Nitrite (Negative) Urine Bilirubin (Negative) Urine Urobilinogen (<2.0) mg/dL Ur Leukocyte Esterase (Negative) Urine WBC (Auto) (0.0-6.0) /HPF Urine RBC (Auto) (0.0-6.0) /HPF U Epithel Cells (Auto) (0-13.0) /HPF Urine Mucus /HPF Salicylates (2.8-20.0) mg/dL Urine Opiates Screen Urine Methadone Screen Acetaminophen (10.0-30.0) ug/mL Ur Barbiturates Screen Ur Phencyclidine Scrn Ur Amphetamines Screen U Benzodiazepines Scrn Urine Cocaine Screen U Marijuana (THC) Screen Drugs of Abuse Note Plasma/Serum Alcohol < 0.01 (0-0.07) % 11/26/20 11/26/20 11/26/20 Range/Units 07:54 07:54 16:58 WBC (4.5-11.0) K/mm3 RBC (3.65-5.03) M/mm3 Hgb (10.1-14.3) gm/dl Hct (30.3-42.9) % MCV (79-97) fl MCH (28-32) pg MCHC (30-34) % RDW (13.2-15.2) % Plt Count (140-440) K/mm3 Lymph % (Auto) (13.4-35.0) % [place] % (Auto) (0.0-7.3) % Eos % (Auto) (0.0-4.3) % Baso % (Auto) (0.0-1.8) % Lymph # (Auto) (1.2-5.4) K/mm3 [place] # (Auto) (0.0-0.8) K/mm3 Eos # (Auto) (0.0-0.4) K/mm3 Baso # (Auto) (0.0-0.1) K/mm3 Seg Neutrophils % (40.0-70.0) % Seg Neutrophils # (1.8-7.7) K/mm3 D-Dimer (0-234) ng/mlDDU Sodium (137-145) mmol/L Potassium (3.6-5.0) mmol/L Chloride (98-107) mmol/L Carbon Dioxide (22-30) mmol/L Anion Gap mmol/L BUN (7-17) mg/dL Creatinine (0.6-1.2) mg/dL Estimated GFR ml/min BUN/Creatinine Ratio % Glucose (65-100) mg/dL Calcium (8.4-10.2) mg/dL Total Creatine Kinase 126 (30-135) units/L CK-MB (CK-2) < 1.0 (0.0-4.0) ng/mL CK-MB (CK-2) Rel Index 0.7 (0-4) Troponin T < 0.010 (0.00-0.029) ng/mL HCG, Qual Negative (Negative) Urine Color Yellow (Yellow) Urine Turbidity Clear (Clear) Urine pH 6.0 (5.0-7.0) Ur Specific [place] 1.015 (1.003-1.030) Urine Protein <15 mg/dl (Negative) mg/dL Urine Glucose (UA) Neg (Negative) mg/dL Urine Ketones Neg (Negative) mg/dL Urine Blood Lg (Negative) Urine Nitrite Neg (Negative) Urine Bilirubin Neg (Negative) Urine Urobilinogen < 2.0 (<2.0) mg/dL Ur Leukocyte Esterase Neg (Negative) Urine WBC (Auto) 4.0 (0.0-6.0) /HPF Urine RBC (Auto) > 182.0 (0.0-6.0) /HPF U Epithel Cells (Auto) 1.0 (0-13.0) /HPF Urine Mucus Few /HPF Salicylates (2.8-20.0) mg/dL Urine Opiates Screen Urine Methadone Screen Acetaminophen (10.0-30.0) ug/mL Ur Barbiturates Screen Ur Phencyclidine Scrn Ur Amphetamines Screen U Benzodiazepines Scrn Urine Cocaine Screen U Marijuana (THC) Screen Drugs of Abuse Note Plasma/Serum Alcohol (0-0.07) % 11/26/20 Range/Units 16:58 WBC (4.5-11.0) K/mm3 RBC (3.65-5.03) M/mm3 Hgb (10.1-14.3) gm/dl Hct (30.3-42.9) % MCV (79-97) fl MCH (28-32) pg MCHC (30-34) % RDW (13.2-15.2) % Plt Count (140-440) K/mm3 Lymph % (Auto) (13.4-35.0) % [place] % (Auto) (0.0-7.3) % Eos % (Auto) (0.0-4.3) % Baso % (Auto) (0.0-1.8) % Lymph # (Auto) (1.2-5.4) K/mm3 [place] # (Auto) (0.0-0.8) K/mm3 Eos # (Auto) (0.0-0.4) K/mm3 Baso # (Auto) (0.0-0.1) K/mm3 Seg Neutrophils % (40.0-70.0) % Seg Neutrophils # (1.8-7.7) K/mm3 D-Dimer (0-234) ng/mlDDU Sodium (137-145) mmol/L Potassium (3.6-5.0) mmol/L Chloride (98-107) mmol/L Carbon Dioxide (22-30) mmol/L Anion Gap mmol/L BUN (7-17) mg/dL Creatinine (0.6-1.2) mg/dL Estimated GFR ml/min BUN/Creatinine Ratio % Glucose (65-100) mg/dL Calcium (8.4-10.2) mg/dL Total Creatine Kinase (30-135) units/L CK-MB (CK-2) (0.0-4.0) ng/mL CK-MB (CK-2) Rel Index (0-4) Troponin T (0.00-0.029) ng/mL HCG, Qual (Negative) Urine Color (Yellow) Urine Turbidity (Clear) Urine pH (5.0-7.0) Ur Specific [place] (1.003-1.030) Urine Protein (Negative) mg/dL Urine Glucose (UA) (Negative) mg/dL Urine Ketones (Negative) mg/dL Urine Blood (Negative) Urine Nitrite (Negative) Urine Bilirubin (Negative) Urine Urobilinogen (<2.0) mg/dL Ur Leukocyte Esterase (Negative) Urine WBC (Auto) (0.0-6.0) /HPF Urine RBC (Auto) (0.0-6.0) /HPF U Epithel Cells (Auto) (0-13.0) /HPF Urine Mucus /HPF Salicylates (2.8-20.0) mg/dL Urine Opiates Screen Negative Urine Methadone Screen Negative Acetaminophen (10.0-30.0) ug/mL Ur Barbiturates Screen Negative Ur Phencyclidine Scrn Negative Ur Amphetamines Screen Negative U Benzodiazepines Scrn Negative Urine Cocaine Screen Negative U Marijuana (THC) Screen Positive Drugs of Abuse Note Disclamer Plasma/Serum Alcohol (0-0.07) %
--- NOTE | 2020-11-27 13:31 | Electrocardiograph Report ---
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
--- NOTE | 2020-11-27 15:42 | XRay Report ---
CHEST 1 VIEW INDICATION: acute chest pain. COMPARISON: None FINDINGS: Support devices: None. Heart: Within normal limits. Lungs/Pleura: No acute air space or interstitial disease. Additional findings: None. IMPRESSION: No acute findings. Signer Name: Ian Orellana Jr, MD Signed: 11/27/2020 3:38 PM Workstation Name: [id number]
[2020-11-27] MEDS: VALPROIC ACID 250 MG CAP PO SCH ×2 (15:45→22:45)
[2020-11-28] MEDS: VALPROIC ACID 250 MG CAP PO SCH ×2 (08:06→14:28)
[2020-11-28 09:11] VITALS: BP 108/57
[2020-11-28] MEDS: SERTRALINE 25 MG TAB PO SCH (10:21)
--- NOTE | 2020-11-28 11:03 | Event Note ---
Date: 11/28/20 Patient seen this morning on psych rounding. Patient resting comfortably. Review of the patient's laboratory studies the patient did have some hematuria but in further review this is secondary to patient being on her menses. No further issues from overnight.
--- NOTE | 2020-11-30 21:29 | Electrocardiograph Report ---
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
== END 2020-11-28 16:28 ==
LOC: ED 05:08 → EEVIPCON 05:08 → ED 11-28 16:28
DX: R45.851 Suicidal ideations (principal); Z20.822 Contact with and (suspected) exposure to COVID-19; F20.9 Schizophrenia, unspecified; F31.9 Bipolar disorder, unspecified; F12.10 Cannabis abuse, uncomplicated; Z79.899 Other long term (current) drug therapy
CPT/HCPCS: 36415; 71045; 80048; 80307; 81001; 82550; 82553; 84484; 84703; 85025; 85379; 93005; 96372; 96374; 99285; J2060; U0003; 80320; G0480